=== PATIENT | male | born 1965 | race American Indian/Alaskan Native ===

== ENCOUNTER 2021-12-25 06:11 | Inpatient (IN) | payer MEDICARE ==
--- NOTE | 2021-12-25 07:22 | History and Physical Report ---
History of Present Illness Date of examination: 12/25/21 Date of admission: 12/25/21 Chief complaint: left hip prosthesis dislocation History of present illness: 56-year-old male sent to emergency room for left hip dislocation. Patient initially had left total hip replacement done on December 09, 2021. Approximately 2 to 3 days ago patient began experiencing increasing pain in his left hip. Patient denies any specific history of trauma or injury to the area. Patient was seen in the office where x-rays revealed a left total hip dislocation. Patient was instructed to go to the emergency room for urgent closed reduction possible revision left total hip surgery. Patient denies any paresthesias in his left lower extremity. Patient is ambulating with a walker. Patient has difficulty ambulating. Patient denies any fevers or chills. No other complaints at this time. Past History Past Medical History: hypertension, other (pre-DM (A1C 5.8)) Past Surgical History: arthroscopy (3 left knee arthroscopies, right rotator cuff repair, cervical spine surgery), total hip replacement Social history: no significant social history, , lives with family, full code Medications and Allergies Allergies Allergy/AdvReac Type Severity Reaction Status Date / Time Sulfa (Sulfonamide Allergy Unknown Verified 12/25/21 06:21 Antibiotics) Active Meds: Active Medications Acetaminophen (Acetaminophen 325 Mg Tab) 650 mg PO Q6H BRIGID Docusate Sodium (Docusate Sodium 100 Mg Cap) 100 mg PO BID BRIGID Morphine Sulfate (Morphine 4 Mg/1 Ml Inj) 4 mg IV Q4H PRN PRN Reason: Pain , Severe (7-10) Ondansetron HCl (Ondansetron 4 Mg/2 Ml Inj) 4 mg IV Q8H PRN PRN Reason: Nausea And Vomiting Oxycodone HCl (Oxycodone 5 Mg Tab) 5 mg PO Q4H PRN PRN Reason: Pain, Moderate (4-6) Oxycodone HCl (Oxycodone 5 Mg Tab) 10 mg PO Q4H PRN PRN Reason: Pain , Severe (7-10) Sodium Chloride (Sodium Chloride 0.9% 10 Ml Flush Syringe) 10 ml IV PRN PRN PRN Reason: LINE FLUSH Tramadol HCl (Tramadol 50 Mg Tab) 50 mg PO Q6H PRN PRN Reason: Pain, Moderate (4-6) Review of Systems Musculoskeletal: muscle weakness, limitation of motion, gait dysfunction Physical Examination - Physical exam Eyes: EOM intact ENT: Positive: hearing intact Respiratory effort: normal Heart Sounds: Positive: S1 & S2 General gastrointestinal: Positive: soft, non-tender Integumentary: clear, normal turgor Neurologic: Positive: moves all extremities (ankle PF/DF/EHL motor intact. L4-S1 SILT.), other (Ankle PF/DF/EHL motor intact. L4-S1 SILT. (+) DP Pulse) - Hip left Gait: antalgic Tenderness with palpation: anterior Pain with motion: internal rotation and hip ROM: extension: 10 degrees ROM: flexion: 30 degrees Crepitus with motion: Yes Strength: extension: 4/5 Strength: flexion: 4/5 Strength: abduction: 4/5 Strength: adduction: 4/5 Strength: internal rotation: 4/5 Strength: external rotation: 4/5 Tests: instability tests: positive Results - Labs Labs: All other labs normal. - Diagnostic results Hip x-ray: image reviewed (Xray of the left hip done on December 24, 2021 at outside facility demonstrates a left hip prosthesis dislocation. No definitive fracture seen.) Assessment and Plan 56-year-old male presents with left hip prosthesis dislocation status post left total hip arthroplasty done on December 09, 2021 -Discussion was had with patient and his about his clinical exam and imaging results. Discussed need for collection, it has been stability thereafter and then possible need for revision left total hip surgery. Discussed revision left total hip surgery would involve revision of the femoral stem. The acetabular cup with the most likely not need to be revised. Discussed possible use of a dual mobility liner. Explained the risks and benefits and alternatives to the procedures. Risks of revision total hip surgery include but are not limited to bleeding, infection, neurovascular injury, soft tissue injury, fracture, dislocation, leg length discrepancy, sti ffness, pain, blood clots, loss of limb, loss of life, need for further revision surgery, failure of the implants. Patient had verbalized understanding and wished to proceed with the procedure. -N.p.o. -Patient is on the surgical schedule as an add-on for surgery this morning at 9 AM -Left lower extremities nonweightbearing -IV fluids while n.p.o. -Pain control as needed -Hold all chemical DVT prophylaxis due to pending surgery -SCDs -A copy of the patient's preop medical clearance, blood work and EKG from his primary care doctor's office will be placed in the chart. Serafin Jackson, DO Orthopedic surgery
[2021-12-25] MEDS ORDERED: oxyCODONE 5 MG TAB PO PRN (07:30)
[2021-12-25] MEDS ORDERED: traMADol 50 MG TAB PO PRN (07:30)
[2021-12-25] MEDS ORDERED: ONDANSETRON 4 MG/2 ML INJ IV PRN ×2 (07:30→14:59)
[2021-12-25] MEDS: ACETAMINOPHEN 325 MG TAB PO SCH ×3 (08:07→21:40)
[2021-12-25] MEDS: MORPHINE 4 MG/1 ML INJ IV PRN ×2 (08:27→18:37)
[2021-12-25] MEDS ORDERED: HYDROmorphone 1 MG/1 ML INJ ONE (08:53)
[2021-12-25] MEDS ORDERED: propofoL 200 MG/20 ML VIAL IV ONE (08:53)
[2021-12-25] MEDS ORDERED: LIDOCAINE MPF (2%) 20 MG/1 ML VIAL 5 ML ONE (08:53)
[2021-12-25] MEDS ORDERED: ONDANSETRON 4 MG/2 ML INJ ONE (08:53)
[2021-12-25] MEDS ORDERED: ROCURONIUM 50 MG/5 ML INJ IV ONE (08:54)
[2021-12-25] MEDS ORDERED: VANCOMYCIN 1000 MG INJ ONE ×2 (08:58→13:13)
--- NOTE | 2021-12-25 09:18 | Anesthesia Consultation ---
<RAJAN EL - Last Filed: 12/25/21 09:13> Anesthesia Consult and Med Hx Date of service: 12/25/21 - Airway Anesthetic Teeth Evaluation: Crowns ROM Head & Neck: Adequate Mental/Hyoid Distance: Adequate Mallampati Class: Class II Intubation Access Assessment: Probably Good - Pulmonary Exam CTA: Yes - Pre-Operative Health Status ASA Pre-Surgery Classification: ASA3, Emergency Proposed Anesthetic Plan: General - Pulmonary Hx Smoking: No Hx Asthma: No Hx Sleep Apnea: Yes (Uses CPAP machine) - Cardiovascular System Hx Hypertension: Yes Hx Coronary Artery Disease: No Hx Heart Attack/AMI: No - Central Nervous System Hx Neuromuscular Disorder: No Hx Seizures: No Hx Psychiatric Problems: No - Endocrine Hx Renal Disease: No Hx Liver Disease: No Hx Insulin Dependent Diabetes: Yes (Prediabetic) Hx Thyroid Disease: No - Hematic Hx Anemia: No - Other Systems Hx Alcohol Use: No Hx Obesity: Yes (BMI 34.9kg) - Additional Comments Anesthesia Medical History Comments: Denied previous anesthesia complication <CAROLINA CROSS - Last Filed: 12/26/21 09:58> Anesthesia Consult and Med Hx - Additional Comments Anesthesia Medical History Comments: Co-signed for chart completion.
--- NOTE | 2021-12-25 09:19 | Anesthesia Day of Surgery ---
<RAJAN EL - Last Filed: 12/25/21 09:18> Anesthesia Day of Surgery - Day of Surgery Patient Examined: Yes Patient H&P Reviewed: Yes Patient is NPO: Yes Beta Blockers: No Cardiac Clearance: No Pulmonary Clearance: No <CAROLINA CROSS - Last Filed: 12/26/21 09:57> Anesthesia Day of Surgery - Day of Surgery Patient Examined: No (Co-signed for chart completion.)
[2021-12-25] MEDS ORDERED: SODIUM CHLORIDE P/F VIAL 10 ML 10 ML ONE ×2 (09:25)
[2021-12-25] MEDS ORDERED: TRANEXAMIC ACID 1,000 MG/10 ML ONE ×2 (09:32→10:45)
[2021-12-25 09:57] LABS: Basophils % (Auto) 0.9 % (0.0-1.8); Eosinophils # (Auto) 0.3 K/mm3 (0.0-0.4); Eosinophils % (Auto) 8.9 % (0.0-4.3); Hematocrit 36.2 % (35.5-45.6); Lymphocytes # (Auto) 1.3 K/mm3 (1.2-5.4); Lymphocytes % (Auto) 37.1 % (13.4-35.0); Mean Corpuscular HGB Conc 33 % (32-34); Mean Corpuscular Volume 89 fl (84-94); Monocytes # (Auto) 0.4 K/mm3 (0.0-0.8); Platelet Count 331 K/mm3 (140-440); Red Blood Count 4.05 M/mm3 (3.65-5.03); Red Cell Distribution Width 15.2 % (13.2-15.2)
[2021-12-25 10:04] LABS: Alanine Aminotransferase 46 units/L (7-56); BUN/Creatinine Ratio 19; Blood Urea Nitrogen 21 mg/dL (9-20); Calcium 9.4 mg/dL (8.4-10.2); Hemolysis Index 9
[2021-12-25] MEDS: DOCUSATE SODIUM 100 MG CAP PO SCH ×2 (10:08→21:40)
[2021-12-25] MEDS ORDERED: methylPREDNISolone ACETATE 40 MG/1 ML INJ ONE (10:33)
[2021-12-25] MEDS ORDERED: MORPHINE 10 MG/1 ML INJ ONE (10:33)
[2021-12-25] MEDS ORDERED: SODIUM CHLORIDE 0.9% 50 ML ONE (10:33)
[2021-12-25] MEDS ORDERED: BUPIVACAINE/PF (0.5%) 5 MG/1 ML 30 ML VIAL INFILTRATI ONE ×2 (10:33→11:03)
[2021-12-25] MEDS ORDERED: TRANEXAMIC ACID 1,000 MG/10 ML IV ONE (11:02)
[2021-12-25] MEDS ORDERED: VANCOMYCIN 1,000 MG/20 ML IV ONE ×2 (11:02)
[2021-12-25] MEDS ORDERED: methylPREDNISolone ACETATE 40 MG/1 ML INJ INTRA-ARTI ONE (11:04)
[2021-12-25] MEDS ORDERED: SODIUM CHLORIDE 0.9% 50 ML IVPB IV ONE (11:04)
[2021-12-25] MEDS ORDERED: MORPHINE 10 MG/1 ML INJ IM ONE (11:04)
[2021-12-25] MEDS ORDERED: SODIUM CHLORIDE 0.9% IRR 1,500 ML BOTTLE IR ONE ×2 (11:05)
[2021-12-25] MEDS ORDERED: ceFAZolin 1 GM VIAL ONE ×2 (11:23)
[2021-12-25] MEDS ORDERED: LACTATED RINGERS 2,000 ML ONE (11:26)
[2021-12-25] MEDS ORDERED: LACTATED RINGERS 1,000 ML ONE (13:22)
[2021-12-25] MEDS ORDERED: SODIUM CHLORIDE 0.9% 400 ML ONE (13:22)
[2021-12-25] MEDS ORDERED: SUGAMMADEX SODIUM 200 MG/2 ML VIAL IV ONE (13:30)
[2021-12-25] MEDS ORDERED: HYDROmorphone 0.5 MG/0.5 ML INJ ONE (13:39)
--- NOTE | 2021-12-25 13:53 | Post Operative Note ---
Date of procedure: 12/25/21 Pre-op diagnosis: Left total hip prothesis dislocation, left total hip instability. Findings: Revision left total hip replacement Procedure: Revision left total hip replacement Anesthesia: DEVYN Surgeon: SCOTTIE COX Adjunct Faculty For Medical Terminology: ISMAEL BLOOM Estimated blood loss: other (300 mL) Pathology: none Condition: stable Disposition: PACU
--- NOTE | 2021-12-25 14:14 | Operative Report ---
Operative Report Operative Report: Patient Name: Barbra Teresa Date of : 1965 Date of Surgery: 12/25/2021 Pre-Operative Diagnosis: Left total hip prosthesis dislocation Post-Operative Diagnosis: Left total hip prosthesis dislocation, left total hip instability Procedure: Revision left total hip replacement, use of intraoperative fluoroscopy Surgeon: Serafin Jackson DO Assistants: Jennifer Loredo PA-C EBL: 350 mL Complications: None Anesthesia: GETA Implants: [employer] AMIS size 4 cemented stem, double mobility converter liner size E, DM liner, Femoral head size M +0 Indications: This is a 56-year-old male who underwent left anterior total hip replacement on December 09, 2021. Approximately 2 to 3 days ago patient began developing worsening pain in his left hip. Patient was seen in the office and x-rays revealed dislocation of his left total hip prosthesis. Patient was instructed to go to the emergency room urgently for closed versus open reduction of left total hip dislocation, possible revision left total hip surgery. Patient was met in the preoperative holding area where the risk, benefits, alternatives to surgery were explained to the patient in detail. Risks include but are not limited to infection, bleeding, neurovascular injury, limb length discrepancy, soft tissue injury, need for further surgery, fracture, need for blood transfusion, dislocation, pain, stiffness, loss of limb, loss of life, implant failure. Discussed that we will try to perform a closed reduction however if that is not possible or if we see any abnormalities we will have to do an open reduction. Discussed that patient may need revision surgery if we find any abnormalities such as femoral component subsidence, malpositioning of the implants, fracture. Revision surgery may entail revision of his femoral stem, possible conversion to a dual mobility liner. She was in agreement with treatment plan. Informed consent was obtained after all questions were thoroughly answered. Procedure: Patient was placed supine on the operating room table and all bony prominences were well-padded. Left lower extremity was well-padded and the left leg was secured in the AMIS leg pineda. The left lower extremity was padded and placed in a leg pineda. A timeout was performed by all members of the operating room team. Using the AMIS leg pineda traction and internal rotation were applied to the left hip. The hip was unable to be reduced. At this time it was decided to proceed with open reduction, possible revision surgery. The left lower extremity was prepped and draped in the usual sterile fashion. A 10 cm oblique incision was made over the anterior aspect of the proximal left thigh going through the same previous surgical incision. Using electrocautery, the incision was carried down to the subcutaneous tissues. The tensor fascia katlyn muscle was identified and the fascia of the muscle was incised along the length of the wound, parallel to the muscle fibers. The tensor fascia muscle was then retracted laterally and the sartorius muscle retracted medially. The underlying rectus femoris muscle was then identified. The superficial fascia of the rectus femoris muscle was then incised along the lateral border of the muscle. The rectus femoris muscle was then retracted medially exposing the hip joint. At this time we carefully inspected the femoral component and it was noted to have subsided approximately 3 to 4 mm. We carefully inspected the proximal femur in the calcar region and we did not see any fracture lines. Using the [employer] hip stem extractor we carefully removed the femoral stem. Again we inspected the proximal femur and did not find any fracture. We then turned our attention to the acetabulum. The patient's previous polyethylene component was then removed using a large frag screw to help disengage the polyethylene liner from the underlying acetabular cup. We carefully evaluated the acetabular component and found it to be in acceptable positioning. We irrigated the acetabular component and inserted a metal dual mobility liner. The dual mobility liner was impacted into the cup. We then used a Samreen to try and disengage the dual mobility liner. We were unable to do so as it was secured within the acetabular component. We then turned our attention back to the femur. We began to sequentially broach the proximal femur. We found that the size 4 broach was potting distally into the tight canal and was loose proximally in the metaphyseal region. We then inserted a ball-tipped guidewire down the femoral canal and used flexible reamers to sequentially reamed the canal ending with a size 14 reamer. The ball-tipped guidewire was removed. We returned to broaching the femur and were able to broach down the size 5 AMIS stem broach. We then put on a standard neck and a trial dual mobility head. We reduced the hip and found it to be stable. Hip was flexed to 100 degrees with no anterior impingement. Hip was then extended to 45 degrees and externally rotated to 45 degrees and was secure. Fluoroscopy was used to confirm that the femoral broach was down the center of the femoral canal on the lateral view as well as the AP view. Also we used fluoroscopy to confirm that we had achieved our leg length goal that we had planned preoperatively. We then dislocated the hip and removed the trial femoral head and neck. The size 5 broach was secured distally however there was a small amount of movement proximally. It was then decided to cement a size 4 femoral stem. We did not want to put in a larger stem as that would lengthen the patient's leg too much. The femoral canal was then thoroughly irrigated and dried. We then mixed 2 bags of cement. We inserted a cement restrictor into the canal. The cement was carefully injected into the femoral canal. We inserted a size 4 AMIS femoral stem into the femoral canal. All excess cement was then removed. The femoral stem was held in place until the cement had cured. The Wise taper of the hip stem was cleaned and dried. The dual mobility heads were then assembled on the back table. The dual mobility head was then gently tapped onto the femoral stem. The hip joint was then reduced. Again stability was tested in similar fashion which showed the hip had good stability with no anterior impingement and no signs of subluxation with extension and external rotation. Fluoroscopy was also used to confirm that we had achieved our preoperative limb length goal. Before we started the wound closure we irrigated the deep and superficial tissues with a mixture of diluted Betadine and normal saline. The joint was then copiously irrigated using pulsatile lavage and normal saline. Then approximately 80 cc of local anesthetic was injected into the deep tissues and surrounding musculature in the superficial tissues. We were careful not to inject needle into the area of the femoral nerve. 1 g of powdered vancomycin was then sprinkled into the hip joint as well as the deep and superficial tissues. The fascia of the tensor fascia katlyn muscle was then repaired using #0 Vicryl suture. The repair was then reinforced with a running #1 strata fix PDS suture. The deep fatty layer was irrigated once again and closed with 0 Vicryl. The subcutaneous tissues were closed with 2-0 Vicryl. The subcuticular layer was closed with running 3-0 Monocryl. The skin incision was then covered with a sterile occlusive dressing. During the entire surgical procedure hemostasis was maintained using electrocautery. The sponge and needle counts were correct at the end of the case. The patient was then awakened and extubated by the anesthesia team. Patient was taken to the recovery room in stable condition.
[2021-12-25] MEDS ORDERED: HYDROmorphone 0.5 MG/0.5 ML INJ IV PRN ×2 (14:59)
[2021-12-25 15:21] LABS: Hemoglobin 9.9 gm/dl (11.8-15.2)
--- NOTE | 2021-12-25 15:27 | XRay Report ---
AP PELVIS 2 VIEWS INDICATION / CLINICAL INFORMATION: Status post hip replacement. COMPARISON: None available. FINDINGS: BONES / JOINT(S): There is a left hip prosthesis without complication. 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 I see no evidence of acute fracture or subluxation. SOFT TISSUES: There is associated postsurgical gas in the soft tissues surrounding the left hip. ADDITIONAL FINDINGS: None. IMPRESSION: No complication of surgery is seen. Signer Name: Charli Mathias MD Signed: 12/25/2021 3:22 PM Workstation Name: [id number]
--- NOTE | 2021-12-25 15:28 | Post Anesthesia Evaluation ---
<RAJAN EL - Last Filed: 12/25/21 15:26> - Post Anesthesia Evaluation Patient Participated: Yes Airway Patent: Yes Stable Respiratory Function: Yes Nausea/Vomiting: No Temp > 96.8F: Yes Pain Manageable: Yes Adequeate Hydration: Yes Anesthesia Complications: No Block Receding Appropriately: Not Applicable Patient on Ventilator: No <CAROLINA CROSS - Last Filed: 12/26/21 09:57> - Post Anesthesia Evaluation Other Comments: Co-signed for chart completion.
[2021-12-25] MEDS: INSULIN LISPRO 100 UNIT/ML SUB-Q SCH ×2 (16:07→21:45)
--- NOTE | 2021-12-25 16:10 | Consultation ---
History of Present Illness - Reason for Consult Consult date: 12/25/21 Medical Management Requesting physician: SCOTTIE COX - History of Present Illness 56 YO Male with Obesity, HTN, OA, Metabolic Syndrome admitted for surgical revision of Left Hip. Patient seen and evaluated upon arrival to her room. Patient resting comfortably. Patient denies pain. No reported nursing events. Past History Past Medical History: hypertension, other (pre-DM (A1C 5.8)) Past Surgical History: arthroscopy (3 left knee arthroscopies, right rotator cuff repair, cervical spine surgery), total hip replacement Social history: no significant social history, , lives with family, full code Medications and Allergies Allergies Allergy/AdvReac Type Severity Reaction Status Date / Time Sulfa (Sulfonamide Allergy Unknown Verified 12/25/21 06:21 Antibiotics) Active Meds: Active Medications Acetaminophen (Acetaminophen 325 Mg Tab) 650 mg PO Q6H BRIGID Docusate Sodium (Docusate Sodium 100 Mg Cap) 100 mg PO BID BRIGID Hydromorphone HCl (Hydromorphone 0.5 Mg/0.5 Ml Inj) 0.25 mg IV Q10MIN PRN PRN Reason: Pain, Moderate (4-6) Stop: 12/25/21 16:30 Hydromorphone HCl (Hydromorphone 0.5 Mg/0.5 Ml Inj) 0.5 mg IV Q10MIN PRN PRN Reason: Pain , Severe (7-10) Stop: 12/25/21 16:30 Last Admin: 12/25/21 15:04 Dose: 0.5 mg Morphine Sulfate (Morphine 4 Mg/1 Ml Inj) 4 mg IV Q4H PRN PRN Reason: Pain , Severe (7-10) Last Admin: 12/25/21 08:27 Dose: 4 mg Ondansetron HCl (Ondansetron 4 Mg/2 Ml Inj) 4 mg IV Q8H PRN PRN Reason: Nausea And Vomiting Last Admin: 12/25/21 08:27 Dose: 4 mg Ondansetron HCl (Ondansetron 4 Mg/2 Ml Inj) 4 mg IV ONCE PRN PRN Reason: Nausea And Vomiting Oxycodone HCl (Oxycodone 5 Mg Tab) 5 mg PO Q4H PRN PRN Reason: Pain, Moderate (4-6) Oxycodone HCl (Oxycodone 5 Mg Tab) 10 mg PO Q4H PRN PRN Reason: Pain , Severe (7-10) Sodium Chloride (Sodium Chloride 0.9% 10 Ml Flush Syringe) 10 ml IV PRN PRN PRN Reason: LINE FLUSH Tramadol HCl (Tramadol 50 Mg Tab) 50 mg PO Q6H PRN PRN Reason: Pain, Moderate (4-6) Review of Systems Constitutional: no weight loss, no fever, no chills Ears, nose, mouth and throat: no ear pain, no tinnitis, no nasal congestion, no nasal discharge Cardiovascular: no syncope Respiratory: no cough, no cough with sputum, no shortness of breath Gastrointestinal: no nausea, no diarrhea, no change in bowel habits, no coffee ground emesis Genitourinary Male: no hematuria, no flank pain, no discharge, no urinary hesitancy, no incontinence Rectal: no pain Musculoskeletal: no neck pain Exam - Constitutional Vitals: Temp Pulse Resp BP Pulse Ox 98.7 F 118 H 14 115/70 99 12/25/21 16:00 12/25/21 16:00 12/25/21 16:00 12/25/21 16:00 12/25/21 16:00 General appearance: Present: no acute distress, obese - EENT Eyes: Present: PERRL ENT: hearing intact, clear oral mucosa - Neck Neck: Present: supple, normal ROM - Respiratory Respiratory effort: normal Respiratory: bilateral: CTA - Cardiovascular Heart Sounds: Present: S1 & S2. Absent: rub, click - Extremities Extremities: pulses symmetrical, No edema Peripheral Pulses: within normal limits - Abdominal General gastrointestinal: Present: soft, non-tender, non-distended, normal bowel sounds Male genitourinary: Present: normal - Integumentary Integumentary: Present: clear, warm, dry - Musculoskeletal Musculoskeletal: gait normal, strength equal bilaterally - Psychiatric Psychiatric: appropriate mood/affect, intact judgment & insight - Neurologic Neurologic: CNII-XII intact, moves all extremities Results - Labs CBC & Chem 7: 12/25/21 15:14 12/25/21 08:59 Labs: Abnormal lab results 12/25/21 12/25/21 12/25/21 Range/Units 08:59 08:59 15:14 WBC 3.5 L (4.5-11.0) K/mm3 Hgb 9.9 L (11.8-15.2) gm/dl Hct 30.0 L D (35.5-45.6) % Lymph % (Auto) 37.1 H (13.4-35.0) % Bullock % (Auto) 12.0 H (0.0-7.3) % Eos % (Auto) 8.9 H (0.0-4.3) % Seg Neutrophils # 1.5 L (1.8-7.7) K/mm3 BUN 21 H (9-20) mg/dL Glucose 104 H (75-100) mg/dL POC Glucose (70-105) mg/dL 12/25/21 Range/Units 15:15 WBC (4.5-11.0) K/mm3 Hgb (11.8-15.2) gm/dl Hct (35.5-45.6) % Lymph % (Auto) (13.4-35.0) % Bullock % (Auto) (0.0-7.3) % Eos % (Auto) (0.0-4.3) % Seg Neutrophils # (1.8-7.7) K/mm3 BUN (9-20) mg/dL Glucose (75-100) mg/dL POC Glucose 192 H (70-105) mg/dL Assessment and Plan - Patient Problems (1) Hypertension Current Visit: Yes Status: Acute Qualifiers: Hypertension type: primary hypertension Qualified Code(s): I10 - Essential (primary) hypertension Plan to address problem: Monitor blood pressure every shift as per nursing care protocol, continue medical management. Pain control. (2) Diabetes Current Visit: Yes Status: Acute Plan to address problem: Consistent carbohydrate diet, Accu-Chek, insulin protocol, hypoglycemia protocol. (3) Metabolic syndrome Current Visit: Yes Status: Acute Plan to address problem: Low-cholesterol diet, increase physical activity discharge, weight reduction, (4) Obesity (BMI 30.0-34.9) Current Visit: Yes Status: Acute Plan to address problem: Balanced diet, increase physical activity discharge, outpatient pulmonary follow-up for sleep study.
[2021-12-25] MEDS ORDERED: DEXTROSE 50% IN WATER (25GM) 50 ML SYRINGE IV PRN (16:18)
--- NOTE | 2021-12-25 20:14 | XRay Report ---
INTRAOPERATIVE FLUOROSCOPY: LEFT HIP INDICATION / CLINICAL INFORMATION: LT HIP REVISION. TECHNIQUE: Intraoperative spot images were obtained during the procedure. FINDINGS: First image shows superior dislocation of the femoral component of the left total hip arthroplasty. T he femoral component was revised with coronal image showing satisfactory postop appearance of the lef t total hip arthroplasty. No fracture. Fluoroscopy Time: 0.3 minutes. Fluoroscopy Images: 6. Signer Name: Dm Arguelles MD Signed: 12/25/2021 8:09 PM Workstation Name: [id number]
[2021-12-25] MEDS ORDERED: SODIUM CHLORIDE 0.9% 1000 ML 1,000 ML IV SCH (21:00)
[2021-12-25] MEDS: TAMSULOSIN 0.4 MG CAP PO SCH (21:40)
[2021-12-25] MEDS: oxyCODONE 5 MG TAB PO PRN (22:33)
[2021-12-25] MEDS: ceFAZolin/NS 1 GM/50 ML 1 GM/50 ML BAG IV SCH (22:34)
[2021-12-26] MEDS: ACETAMINOPHEN 325 MG TAB PO SCH ×2 (01:50→09:19)
[2021-12-26] MEDS: ceFAZolin/NS 1 GM/50 ML 1 GM/50 ML BAG IV SCH (05:32)
[2021-12-26 05:43] LABS: Hematocrit 25.8 % (35.5-45.6); Hemoglobin 8.6 gm/dl (11.8-15.2)
[2021-12-26 06:03] LABS: BUN/Creatinine Ratio 21; Blood Urea Nitrogen 21 mg/dL (9-20); Calcium 8.3 mg/dL (8.4-10.2); Hemolysis Index 1
[2021-12-26] MEDS: INSULIN LISPRO 100 UNIT/ML SUB-Q SCH (08:22)
[2021-12-26] MEDS: TAMSULOSIN 0.4 MG CAP PO SCH (09:20)
[2021-12-26] MEDS: DOCUSATE SODIUM 100 MG CAP PO SCH (09:20)
[2021-12-26] MEDS: oxyCODONE 5 MG TAB PO PRN (09:21)
[2021-12-26 09:31] VITALS: BP 115/57
--- NOTE | 2021-12-26 09:32 | Progress Note ---
Assessment and Plan 56-year-old male status post revision left total hip replacement for instability postop day #1 -Overall patient is doing well. Pain is controlled this morning.' -Physical therapy -Left lower extremity is weightbearing as tolerated, no active or passive hip abduction past 20 degrees on the left side. -Aspirin 81 mg p.o. twice daily for DVT prophylaxis, SCDs -Acute blood loss anemia -expected after major surgery, hemoglobin is 8.6 today. Vitals are stable. Patient was tachycardic prior to hospital admission. Patient is asymptomatic. We will give patient a dose of IV iron this morning -Hospitalist medicine team consult appreciated -Discharge plan to home today Subjective Date of service: 12/26/21 Principal diagnosis: Revision left total hip replacement Interval history: Patient seen and examined at bedside. Patient states his pain is better controlled this morning than last night. Patient is tolerating oral diet. Patient denies any fevers, chills, nausea, vomiting. Patient denies any shortness of breath, chest pains. Patient states he has not been out of bed yet but is ready for physical therapy today. Patient denies any paresthesias in his left lower extremity. No other complaints at this time. Objective Vital signs: Vital Signs - 12hr 12/25/21 12/25/21 12/26/21 21:39 21:53 05:32 Temperature 97.9 F 98.3 F Pulse Rate 118 H 112 H 111 H Respiratory 18 20 18 Rate Blood Pressure 129/79 124/70 O2 Sat by Pulse 96 98 97 Oximetry Narrative Exam: Left lower extremity: Dressings are clean, dry, intact. Ankle plantarflexion, dorsiflexion, EHL motor function intact. L4-S1 sensation to light touch intact. (+) DP Pulse. Incision: clean and dry Weight bearing status: full - Allied Health Allied health notes reviewed: nursing - Labs CBC & BMP: 12/26/21 04:56 12/26/21 04:56 Labs: Abnormal lab results 12/25/21 12/25/21 12/25/21 Range/Units 08:59 08:59 15:14 WBC 3.5 L (4.5-11.0) K/mm3 Hgb 9.9 L (11.8-15.2) gm/dl Hct 30.0 L D (35.5-45.6) % Lymph % (Auto) 37.1 H (13.4-35.0) % Randall % (Auto) 12.0 H (0.0-7.3) % Eos % (Auto) 8.9 H (0.0-4.3) % Seg Neutrophils # 1.5 L (1.8-7.7) K/mm3 BUN 21 H (9-20) mg/dL Glucose 104 H (75-100) mg/dL POC Glucose (70-105) mg/dL Calcium (8.4-10.2) mg/dL 12/25/21 12/25/21 12/25/21 Range/Units 15:15 17:29 20:46 WBC (4.5-11.0) K/mm3 Hgb (11.8-15.2) gm/dl Hct (35.5-45.6) % Lymph % (Auto) (13.4-35.0) % Randall % (Auto) (0.0-7.3) % Eos % (Auto) (0.0-4.3) % Seg Neutrophils # (1.8-7.7) K/mm3 BUN (9-20) mg/dL Glucose (75-100) mg/dL POC Glucose 192 H 150 H 172 H (70-105) mg/dL Calcium (8.4-10.2) mg/dL 12/26/21 12/26/21 12/26/21 Range/Units 04:56 04:56 07:32 WBC (4.5-11.0) K/mm3 Hgb 8.6 L (11.8-15.2) gm/dl Hct 25.8 L (35.5-45.6) % Lymph % (Auto) (13.4-35.0) % Randall % (Auto) (0.0-7.3) % Eos % (Auto) (0.0-4.3) % Seg Neutrophils # (1.8-7.7) K/mm3 BUN 21 H (9-20) mg/dL Glucose 156 H (75-100) mg/dL POC Glucose 141 H (70-105) mg/dL Calcium 8.3 L (8.4-10.2) mg/dL
--- NOTE | 2021-12-26 09:39 | Discharge Summary ---
Providers - Providers Date of Admission: 12/25/21 15:08 Date of discharge: 12/26/21 Attending physician: SCOTTIE COX DO 12/25/21 07:09 Consult to Case Management [CONS] Routine Services Needed at Discharge: Physical Therapy Notified:: cm Was contact made?: No Physical Therapy Evaluation and Treat [CONS] Routine Comment: avoid flexion, add, int rotation of operative hip Reason For Exam: post op therapy 12/25/21 14:33 Consult to Physician [CONS] Routine Comment: post-op medical financial management Provider: COLIN MEJÍA Physician Instructions: post-op medical management Reason For Exam: post-op medical management Primary care physician: MICKEY SANFORD Hospitalization Reason for admission: Acute care following revision left total hip replacement surgery Condition: Stable Procedures: Revision left total hip replacement surgery done on December 25, 2021 Hospital course: Patient presented to the emergency room with left total hip dislocation. Patient was admitted in indicated for closed versus open reduction, and revision hip surgery as indicated. See operative report for more details. Postoperatively patient stayed in the hospital for acute care following revision left total hip replacement surgery for instability on December 25, 2021. Patient's pain was controlled with oral and IV pain medication. Patient was started on aspirin 81 mg p.o. twice daily for DVT prophylaxis on postop day #1. Patient remained afebrile during his hospital course. Patient tolerating oral diet. Physical therapy was consulted on postop day #1. Hospitalist medicine team was consulted for postoperative medical management. Patient's hemoglobin on postop day #1 was 8.6 -acute blood loss anemia expected after major surgery. Patient's vitals remained stable, patient was asymptomatic. Patient given 1 dose of IV iron. Patient tolerated oral diet. Disposition: 01 HOME / SELF CARE / HOMELESS Final Discharge Diagnosis (Prints w/discharge instructions): Revision left total hip replacement for instability Core Measure Documentation - Palliative Care Palliative Care/ Comfort Measures: Not Applicable - Core Measures Any of the following diagnoses?: none Exam - Physical Exam Narrative exam: Left lower extremity: Dressings are clean, dry, intact. Ankle plantarflexion, dorsiflexion, EHL motor function intact. L4-S1 sensation to light touch intact. (+) DP Pulse. - Constitutional Vitals: Temp Pulse Resp BP Pulse Ox 98.0 F 118 H 18 115/57 98 12/26/21 09:25 12/26/21 09:25 12/26/21 09:25 12/26/21 09:25 12/26/21 09:25 General appearance: Present: no acute distress, well-nourished - EENT Eyes: Present: PERRL, EOM intact ENT: hearing intact - Neck Neck: Present: supple - Respiratory Respiratory effort: normal - Extremities Extremities: pulses intact Peripheral Pulses: within normal limits - Abdominal General gastrointestinal: Present: soft, non-tender Male genitourinary: Present: deferred - Rectal Rectal Exam: deferred - Integumentary Integumentary: Present: clear, warm - Musculoskeletal Musculoskeletal: left sided weakness - Psychiatric Psychiatric: appropriate mood/affect, intact judgment & insight - Neurologic Neurologic: moves all extremities - Allied Health Allied health notes reviewed: nursing Plan Activity: advance as tolerated, no driving until cleared by PCP, fall precautions Weight Bearing Status: Full Weight Bearing Diet: regular Wound: keep clean and dry, per your surgeon's advice Special Instructions: no heavy lifting, physical therapy Durable Medical Equipment Needed Upon Discharge: Walker-Rolling Additional Instructions: Follow-up printed discharge instructions given by surgeon. Follow up with: MICKEY SANFORD MD [Primary Care Provider] - 3-5 Days SCOTTIE COX DO [Staff Physician] - 12/31/21
[2021-12-26] MEDS ORDERED: ASPIRIN EC 81 MG TAB PO SCH (10:00)
[2021-12-26] MEDS ORDERED: SODIUM FERRIC GLUCON/SUCRO 125 MG in SODIUM CHLORIDE 0.9% 100 ML IV ONE (10:30)
== END 2021-12-26 12:30 | disposition home health service (06) | DRG 467 ==
LOC: ED 06:11 → 3A 15:08
PROVIDERS: ADMIT Orthopaedic Surgery; ATTEND Orthopaedic Surgery
PROC: 0SWB0JZ Revision of Synthetic Substitute in Left Hip Joint, Open Approach (ICD-10-PCS; principal; 2021-12-25)
DX: T84.021A Dislocation of internal left hip prosthesis, initial encounter (principal); D62 Acute posthemorrhagic anemia; I10 Essential (primary) hypertension; Y83.8 Other surgical procedures as the cause of abnormal reaction of the patient, or of later complication, without mention of misadventure at the time of the procedure; E88.81 Metabolic syndrome and other insulin resistance; E66.9 Obesity, unspecified; Z68.34 Body mass index [BMI] 34.0-34.9, adult; Z88.2 Allergy status to sulfonamides; Z88.1 Allergy status to other antibiotic agents; Y92.89 Other specified places as the place of occurrence of the external cause
CPT/HCPCS: 36415; 72170; 80048; 80053; 82962; 85014; 85018; 85025; 86850; 86900; 86901; 88300; 88302; 94660; 94760; G0378; J3490; C1713; C1776; J0690; J1030; J1170; J2270; J2405; J2704; J3370; J7030; J7120